=== PATIENT | female | born 1970 | race Caucasian/White ===

== ENCOUNTER 2019-01-09 | Emergency (ER) | payer SELFPAY ==
[~2019-01-09] VITALS: Ht 157.5 cm; Wt 72.4 kg
[2019-01-09 00:03] VITALS: Ht 157.5 cm; Wt 72.4 kg
[2019-01-09] MEDS ORDERED: LEVETIRACETAM 1000 MG (PMX) 100 ML IVPB STA (04:09)
[2019-01-09] MEDS ORDERED: LORAZEPAM 2 MG INJ IV STA (04:09)
[2019-01-09] MEDS ORDERED: SOD CHLORIDE 0.9% 500 ML IV STA (04:09)
--- NOTE | 2019-01-09 05:27 | ERD ---
ER Documentation Chief Complaint Chief Complaint pt claimed she had unwitnessed SZ 20 min ago REHAB AIDE; takes keppra HPI This is a 40-year-old female said general anesthesia about 20 minutes ago. Patient has history of seizures and takes Keppra. Denies tongue biting or incontinence. Denies any focal neurologic complaints. Denies any other current issues. ROS All systems reviewed and are negative except as per history of present illness. Allergies Allergies: Coded Allergies: No Known Allergy (Unverified , 01/09/19) PMhx/Soc History of Surgery: Yes (BRAIN TUMOR REMOVAL ) Hx Neurological Disorder: Yes (SEIZURE ) Hx Alcohol Use: No Hx Substance Use: No Hx Tobacco Use: No Smoking Status: Never smoker Physical Exam Vitals Vital Signs Date Temp Pulse Resp B/P (MAP) Pulse Ox O2 O2 Flow FiO2 Time Delivery Rate 01/09/19 97.8 65 16 114/79 100 Room Air 04:44 (91) 01/09/19 98.5 88 18 170/94 95 00:03 (119) Physical Exam Const: No acute distress Head: Atraumatic Eyes: Normal Conjunctiva ENT: Normal External Ears, Nose and Mouth. Neck: Full range of motion. No meningismus. Resp: Clear to auscultation bilaterally Cardio: Regular rate and rhythm, no murmurs Abd: Soft, non tender, non distended. Normal bowel sounds Skin: No petechiae or rashes Back: No midline or flank tenderness Ext: No cyanosis, or edema Neur: Awake and alert Psych: Normal Mood and Affect Result Diagram: 01/09/19 0430 01/09/19 0430 Results 24 hrs Laboratory Tests Test 01/09/19 04:30 White Blood Count 7.0 10^3/ul Red Blood Count 4.65 10^6/ul Hemoglobin 13.6 g/dl Hematocrit 40.2 % Mean Corpuscular Volume 86.5 fl Mean Corpuscular Hemoglobin 29.2 pg Mean Corpuscular Hemoglobin Concent 33.8 g/dl Red Cell Distribution Width 12.5 % Platelet Count 371 10^3/UL Mean Platelet Volume 8.6 fl Immature Granulocytes % 0.600 % Neutrophils % 61.7 % Lymphocytes % 27.6 % Monocytes % 7.5 % Eosinophils % 2.0 % Basophils % 0.6 % Nucleated Red Blood Cells % 0.0 /100WBC Immature Granulocytes # 0.040 10^3/ul Neutrophils # 4.3 10^3/ul Lymphocytes # 1.9 10^3/ul Monocytes # 0.5 10^3/ul Eosinophils # 0.1 10^3/ul Basophils # 0.0 10^3/ul Nucleated Red Blood Cells # 0.0 10^3/ul Sodium Level 140 mmol/L Potassium Level 3.8 mmol/L Chloride Level 107 mmol/L Carbon Dioxide Level 27 mmol/L Anion Gap 6 Blood Urea Nitrogen 18 mg/dl Creatinine 0.81 mg/dl Est Glomerular Filtrat Rate mL/min > 60 mL/min Glucose Level 115 mg/dl Calcium Level 8.9 mg/dl Current Medications Medications Dose Sig/Jamie Start Time Status Last (Trade) Ordered Route PRN Stop Time Admin Dose Reason Admin Sodium 500 ml @ Q1H STAT 01/09/19 DC 01/09/19 Chloride 500 mls/hr IV 04:09 01/09/19 04:29 05:08 Lorazepam 1 mg ONCE STAT 01/09/19 DC 01/09/19 (Ativan) IV 04:09 01/09/19 04:29 04:10 100 ml @ ONCE STAT 01/09/19 DC 01/09/19 Levetiracetam 400 mls/hr IVPB 04:09 01/09/19 04:29 04:23 Procedures/MDM Medical decision m[age]-year-old female with possible recurrent seizure disorder. Loaded with Keppra here. No further seizure-like activity. Stable for trial of outpatient management. Departure Diagnosis: Primary Impression: Seizure disorder Condition: Stable FRANCY JAUREGUI Jan 09, 2019 05:27
[2019-01-09 07:51] VITALS: BP 101/68; PULSE 68; RESP 18
== END 2019-01-09 07:54 | disposition home or self-care (01) ==
LOC: E/R
DX: G40.909 Epilepsy, unspecified, not intractable, without status epilepticus (principal); R40.2142 Coma scale, eyes open, spontaneous, at arrival to emergency department; R40.2362 Coma scale, best motor response, obeys commands, at arrival to emergency department; R40.2252 Coma scale, best verbal response, oriented, at arrival to emergency department; Z85.841 Personal history of malignant neoplasm of brain
CPT/HCPCS: 36415; 80048; 85025; 96374; 96375; 99284; J1953; J2060; J7040